=== PATIENT | male | born 1980 | race Caucasian/White ===

== ENCOUNTER 2020-05-20 14:49 | Outpatient (CLI) | payer BC, SELFPAY ==
[2020-05-21 14:30] LABS: SARS-CoV-2 RNA PCR Negative
== END 2020-05-20 14:50 | disposition home or self-care (01) ==
LOC: CHSLAB 14:51
PROVIDERS: PCP Internal Medicine; Visit Provider Internal Medicine
DX: Z20.828 Contact with and (suspected) exposure to other viral communicable diseases (principal)
CPT/HCPCS: 87635; C9803; U0003

== ENCOUNTER 2021-02-03 11:16 | Outpatient (CLI) | payer BC, SELFPAY ==
--- NOTE | ~2021-02-03 | CT_ITS ---
EXAMINATION: CT abdomen pelvis wo con DATE: 02/03/2021 11:49 INDICATION: Gross hematuria TECHNIQUE: Computed tomography (CT) of the abdomen and pelvis was performed without intravenous contr ast. The dose-length product (DLP) was 311.79 mGy-cm. Automated exposure control and iterative recons truction technique were employed. COMPARISON: 06/05/2016 FINDINGS: The lung bases are clear. The heart size is normal. The liver, spleen, pancreas, gallbladde r, and adrenal glands are normal. There is a 5 mm stone in the right renal pelvis. No stones are iden tified in the kidneys, the left ureter, or the bladder. There is no hydronephrosis or hydroureter. No pathologically enlarged abdominal or pelvic lymph nodes are identified. There is no free intraperito alona gas or evidence of bowel obstruction. There is a fat-containing umbilical hernia. There is mild lumbar spondylosis. IMPRESSION: 1. 5 mm stone in the right renal pelvis. Reviewed, dictated and finalized at location A.
[2021-02-03 11:32] LABS: Add Urine Microscopic? YES; Appearance Urine Cloudy (Clear); Basophils Absolute Auto 0.07 K/mm3 (0.00-0.10); Basophils Percent Auto 0.9 % (0.0-1.0); Bilirubin Urine 1+ (Negative); Blood Urine 3+ (Negative); Color Urine Red (Yellow); Eosinophils Absolute Auto 0.17 K/mm3 (0.02-0.50); Eosinophils Percent Auto 2.2 % (1.0-6.0); Glucose Urine UA Negative (Negative); Hematocrit 45.7 % (40.0-54.0); Hemoglobin 16.4 g/dL (14.0-18.0); Immature Granulocyte Absolute 0.01 K/mm3 (0.00-0.00); Immature Granulocyte Percent A 0.1 % (0.0-0.0); Ketones Urine Negative (Negative); Leukocyte Esterase Ur Negative (Negative); Lymphocytes Absolute Auto 1.94 K/mm3 (1.10-4.50); Lymphocytes Percent Auto 25.5 % (18.0-42.0); Mean Corpuscular HGB Conc 35.9 g/dL (32.0-36.0); Mean Corpuscular Hemoglobin 30.9 pg (27.0-31.0); Mean Corpuscular Volume 86.1 fL (78.0-102.0); Mean Platelet Volume 10.8 fl (8.7-11.0); Monocytes Absolute Auto 0.45 K/mm3 (0.10-0.90); Monocytes Percent Auto 5.9 % (2.0-11.0); Neutrophils Percent Auto 65.4 % (50.0-70.0); Nitrate Urine Negative (Negative); Platelet Count Result 323 K/mm3 (150-420); Protein Urine 1+ (Negative); Red Blood Count 5.31 M/mm3 (4.70-6.10); Red Cell Distribution Width 11.2 % (11.6-14.4); Specific Grav Ur 1.025 (1.010-1.020); Urobilinogen Urine 0.2 mg/dL (0.2-1.0); White Blood Count 7.6 K/mm3 (4.8-10.8); pH Urine 5.5 (5.0-8.0)
[2021-02-03 11:38] LABS: Bacteria Urine 1+ /hpf; RBC Urine >75 /hpf (0-2); WBC Urine None seen /hpf (0-3)
[2021-02-03 11:46] LABS: Partial Thromboplastin Time 24.8 SEC (23.90-30.70); Prothrombin Time 10.9 Seconds (9.50-12.10)
[2021-02-03 12:13] LABS: Alanine Aminotransferase 43 U/L (16-63); Albumin Level 4.1 g/dL (3.4-5.0); Alkaline Phosphatase 68 U/L (46-116); Anion Gap 13 mmol/L (8-16); Aspartate Amino Transferase 22 U/L (15-37); Bilirubin,Total 0.4 mg/dL (0.00-1.00); Blood Urea Nitrogen 10 mg/dL (7-18); Calcium 9.3 mg/dL (8.5-10.1); Carbon Dioxide 26 mmol/L (21-32); Chloride 102 mmol/L (98-108); Estimated Glomerular Filt Rate > 60; Glucose 89 mg/dL (70-99); Osmolality Calculated 290 mOsm/kg (285-295); Potassium 4.4 mmol/L (3.5-5.1); Sodium 141 mmol/L (136-145); Total Protein 7.4 g/dL (6.4-8.2)
== END 2021-02-03 11:17 | disposition home or self-care (01) ==
LOC: CHSLAB 11:18
PROVIDERS: PCP Internal Medicine; Visit Provider Internal Medicine
DX: R31.9 Hematuria, unspecified (principal)
CPT/HCPCS: 36415; 74176; 80053; 81001; 85025; 85610; 85730; 87086; 88112

== ENCOUNTER 2021-02-04 13:40 | Outpatient (CLI) | payer BC, SELFPAY ==
--- NOTE | ~2021-02-04 | XR_ITS ---
EXAMINATION: XR abdomen/kub 1V DATE: 02/04/2021 13:53 INDICATION: Calcium kidney stone. TECHNIQUE: A supine view of the abdomen on 2 radiographs was obtained. COMPARISON: CT abdomen and pelvis 02/03/2021 FINDINGS: There are no dilated loops of bowel. There is a 5 mm stone in right renal pelvis. IMPRESSION: 1. 5 mm stone in right renal pelvis. Reviewed, dictated and finalized at location A.
== END 2021-02-04 13:41 | disposition home or self-care (01) ==
PROVIDERS: PCP Internal Medicine; Visit Provider Urology
DX: N20.0 Calculus of kidney (principal)
CPT/HCPCS: 74018

== ENCOUNTER 2021-02-05 09:15 | Outpatient (CLI) | payer BC, SELFPAY ==
[2021-02-05 10:56] LABS: EDCOVIDSCREEN Negative (Negative)
== END 2021-02-05 09:16 | disposition home or self-care (01) ==
PROVIDERS: PCP Internal Medicine; Visit Provider Urology
DX: Z01.812 Encounter for preprocedural laboratory examination (principal); Z20.822 Contact with and (suspected) exposure to COVID-19
CPT/HCPCS: 36415; 87426; C9803

== ENCOUNTER 2021-02-06 02:20 | Day surgery (SDC) | payer BC, SELFPAY ==
[2021-02-04 14:13] VITALS: BMI 31.6
--- NOTE | ~2021-02-06 | XR_ITS ---
XR abdomen/kub 1V 02/06/2021 12:47 Indication: Preop ESWL. Renal stone Procedure: KUB Comparison: 02/04/2021 Findings: There is a 5 mm right renal stone. Nonobstructive bowel gas pattern. No acute osseous abnor mality. Impression: 1: Right nephrolithiasis. Reviewed, dictated and finalized at location B. Impression: 1: Right nephrolithiasis.
[2021-02-06 13:03] VITALS: BP 110/67; PULSE 87; RESP 16; TEMP 36.3; O2SAT 99
--- NOTE | 2021-02-06 13:10 | P.PNAN_ITS ---
Anes - Initial Pre Proc Eval Procedure: Operation Date: 02/06/21 14:45 Proposed Procedures p Right Renal Extracorporeal Shock Wave Lithotripsy, - Jac Cherry MD s Cystoscopy - Jac Cherry MD Date/Time: 02/06/21 13:10 Surgeon: Jac Cherry MD Pre Op Diagnosis: right kidney stone, gross hematuria Patient Data Age: 40 Gender: M Height: 1.73 m Weight: 94.54 kg Allergies Allergy/AdvReac Type Severity Reaction Status Date / Time iohexol Allergy Severe Hives, Verified 02/06/21 13:04 [From contrast - CT, X-RAY] DIFFICULTY BREATHING Home Medications Medication Instructions Recorded Confirmed Type famotidine [Pepcid] 20 mg PO DAILY PRN 02/04/21 02/06/21 History fluticasone propionate [Flonase 2 spray INTRANASAL DAILY PRN 02/04/21 02/06/21 History Allergy Relief] loratadine [Claritin] 10 mg PO DAILY PRN 02/04/21 02/06/21 History Patient hx anesthesia problems: none Family hx anesthesia problems: none [facility] Past Medical History Medical History (Updated 02/06/21 @ 13:17 by Sony Banuelos MD) Obesity Social History Social History Smoking status: Never smoker Alcohol intake: current Drinks per week: 2 Substance use: never Substance use type: does not use Living arrangements: with family Spiritual care concerns: No Anes - Eval Final PreProcedure Day of Procedure 02/06/21 13:10 Patient weight: obese Heart: regular rate and rhythm Lungs: clear to auscultation Airway: Mallampati scale class II Neurological: alert and oriented Last oral intake: >/= 8 hours ASA classification: II Emergent: no Anesthetic plan: proceed Anesthesia type and monitoring: general LMA and standard monitoring Informed Consent: The patient's anesthetic plan and its attendant risks and benefits were discussed with the patient/family/POA. Questions were solicited and answers provided to the satisfaction of the patient/family/POA.
[2021-02-06] MEDS: LACTATED RINGERS 1,000 ML 30 ML IV CONT (13:46)
--- NOTE | 2021-02-06 15:22 | SUR.PREOP ---
dr morrison talked with pt ,eswl machine not currently working, pt procedure cancelled and pt to call to reschedule procedure.
== END 2021-02-06 15:23 | disposition home or self-care (01) ==
PROVIDERS: PCP Internal Medicine; Visit Provider Urology
PROC: (CPT 50590; principal; 2021-02-06 14:45)
PROC: 0TJB8ZZ Inspection of Bladder, Via Natural or Artificial Opening Endoscopic (ICD-10-PCS; CPT 52000; 2021-02-06 14:45)
DX: N20.0 Calculus of kidney (principal); Z53.8 Procedure and treatment not carried out for other reasons
CPT/HCPCS: 74018; 99212; A9270; G0463; J7030; J7120

== ENCOUNTER 2021-02-09 14:51 | Emergency (ER) | payer BC, SELFPAY ==
--- NOTE | ~2021-02-09 | CT_ITS ---
EXAMINATION: CT abdomen pelvis wo con EXAM DATE: 02/09/2021 15:59 INDICATION: Right flank pain /abdominal pain /history of kidney stone. TECHNIQUE: Spiral CT of the abdomen and pelvis was performed without contrast. Axial, coronal and sag ittal images were reviewed. The dose-length product (DLP) for this examination was 708.12 mGy-cm. T he exposure was tailored according to patient size (auto mA exposure control), and iterative reconstr uction (ASIR) was used as additional dose reduction technique. Comparison is made to prior examinatio n from 02/03/2021. FINDINGS: There is a 6 mm stone in the right ureteropelvic junction, appear to be nonobstructing on p rior study but now there is mild right-sided hydronephrosis. Possible punctate right calyceal stones. The prostate is unremarkable. The bladder is unremarkable. The liver, spleen, adrenal glands and p ancreas are unremarkable. Gallbladder is unremarkable. No biliary obstruction. There is no retrope ritoneal or pelvic lymphadenopathy. The appendix is normal. The stomach and small bowel are unremarkable. There is expected amount of c olonic stool. No free intraperitoneal gas. The heart is normal in size. There are no pericardial or pleural effusions. Right middle lobe granuloma. The bones are unremarkable. IMPRESSION: 1. Right UPJ 6 mm stone, development of mild hydronephrosis. Reviewed, dictated and finalized at location A.
[2021-02-09 15:00] VITALS: BP 141/100; PULSE 83; RESP 18; TEMP 36.4; O2SAT 96
[2021-02-09] MEDS: ONDANSETRON INJ 4 MG/2 ML VIAL IV PUSH (15:15)
[2021-02-09] MEDS: SODIUM CHLORIDE 0.9% IV 1,000 ML 999 ML IV CONT (15:15)
[2021-02-09] MEDS: KETOROLAC 30 MG/ML VIAL (*BKC) IV PUSH (15:21)
[2021-02-09 15:27] LABS: Basophils Absolute Auto 0.07 K/mm3 (0.00-0.10); Basophils Percent Auto 1.1 % (0.0-1.0); Eosinophils Percent Auto 3.1 % (1.0-6.0); Hematocrit 42.5 % (40.0-54.0); Hemoglobin 15.4 g/dL (14.0-18.0); Immature Granulocyte Absolute 0.02 K/mm3 (0.00-0.00); Immature Granulocyte Percent A 0.3 % (0.0-0.0); Lymphocytes Absolute Auto 1.85 K/mm3 (1.10-4.50); Lymphocytes Percent Auto 29.1 % (18.0-42.0); Mean Corpuscular HGB Conc 36.2 g/dL (32.0-36.0); Mean Corpuscular Hemoglobin 31.6 pg (27.0-31.0); Mean Corpuscular Volume 87.1 fL (78.0-102.0); Mean Platelet Volume 10.9 fl (8.7-11.0); Monocytes Absolute Auto 0.48 K/mm3 (0.10-0.90); Monocytes Percent Auto 7.6 % (2.0-11.0); Neutrophils Absolute Auto 3.7 K/mm3 (1.7-7.2); Neutrophils Percent Auto 58.8 % (50.0-70.0); Platelet Count Result 280 K/mm3 (150-420); Red Blood Count 4.88 M/mm3 (4.70-6.10); Red Cell Distribution Width 11.3 % (11.6-14.4); White Blood Count 6.4 K/mm3 (4.8-10.8)
[2021-02-09 15:42] LABS: Alanine Aminotransferase 61 U/L (16-63); Albumin Level 3.5 g/dL (3.4-5.0); Alkaline Phosphatase 67 U/L (46-116); Anion Gap 11 mmol/L (8-16); Aspartate Amino Transferase 26 U/L (15-37); Bilirubin,Total 0.3 mg/dL (0.00-1.00); Blood Urea Nitrogen 7 mg/dL (7-18); Calcium 8.1 mg/dL (8.5-10.1); Carbon Dioxide 25 mmol/L (21-32); Chloride 105 mmol/L (98-108); Estimated CRCL calculation 90 ml/min; Estimated Glomerular Filt Rate > 60; Glucose 118 mg/dL (70-99); Lipase 132 U/L (73-393); Osmolality Calculated 291 mOsm/kg (285-295); Sodium 141 mmol/L (136-145); Total Protein 6.6 g/dL (6.4-8.2)
[2021-02-09 15:42] LABS: Appearance Urine Turbid (Clear); Bilirubin Urine 1+ (Negative); Blood Urine 3+ (Negative); Glucose Urine UA Negative (Negative); Ketones Urine Negative (Negative); Leukocyte Esterase Ur Negative (Negative); Nitrate Urine Negative (Negative); Protein Urine 1+ (Negative)
[2021-02-09 15:44] LABS: Lactic Acid Reflex 1.5 mmol/L (0.4-2.0)
[2021-02-09 15:46] LABS: Add Urine Microscopic? YES; Color Urine Red (Yellow); RBC Urine >75 /hpf (0-2); Squamous Epithelial Cell Urine Rare /hpf (Few); WBC Urine None seen /hpf (0-3)
[2021-02-09 15:47] LABS: Bacteria Urine Trace /hpf
[2021-02-09] MEDS: MORPHINE SULFATE (*CRX) 4 MG/ML INJ IV PUSH (15:52)
[2021-02-09] MEDS: SODIUM CHLORIDE 0.9% IV 500 ML 999 ML IV CONT (15:53)
--- NOTE | 2021-02-09 16:28 | ED.GENADULT ---
HPI - General Adult General Chief complaint: Abdominal Pain Stated complaint: Kidney Stone Source: patient and family History of Present Illness HPI narrative: this is a 40-year-old male that presents with some history of kidney stones having right flank and radiating into his right lower abdomen with some hematuria with some pain level about 8/10 was scheduled to see the urologist but otherwise malfunction in the air equipment and rescheduled for this Tuesday with urology at [place]. The patient is afebrile mild nausea with no vomiting pain level about an 8/10. Onset (ago): hour(s) Location: back and abdomen Radiation: back Severity: severe Severity scale (1-10): 8 Quality: aching Pain Consistency: intermittent Relieving factors: medication Exacerbating factors: none Related Data Home Medications Medication Instructions Recorded Confirmed famotidine [Pepcid] 20 mg PO DAILY PRN 02/04/21 02/09/21 fluticasone propionate [Flonase 2 spray INTRANASAL DAILY PRN 02/04/21 02/09/21 Allergy Relief] loratadine [Claritin] 10 mg PO DAILY PRN 02/04/21 02/09/21 Allergies Allergy/AdvReac Type Severity Reaction Status Date / Time iohexol Allergy Severe Hives, Verified 02/09/21 12:02 [From contrast - CT, X-RAY] DIFFICULTY BREATHING Review of Systems Review of Systems: All systems reviewed & are unremarkable except as noted in HPI and below PMFSH Past Medical History Medical History (Updated 02/09/21 @ 16:33 by Isai Montero MD) Nephrolithiasis Obesity Social History Social History Smoking status: Never smoker Alcohol intake: current Drinks per week: 2 Substance use: never Substance use type: does not use Spiritual care concerns: No Exam Const: General: no acute distress Orientation/consciousness: patient oriented x3 HENMT: Head: normal to inspection Eyes: Conjunctivae: conjunctivae normal Pupils: Equal, round and reactive pupils present Neck: Neck: normal visual inspection, no lymphadenopathy and no meningeal signs Chest: Chest palpation & inspection: normal inspection of the chest Resp: Effort & Inspection: normal respiratory effort Cardio: Rate: regular rate Rhythm: regular rhythm GI: GI Palp: Yes Soft to palpation and Yes Tenderness to palpation present (GI) ( Right flank) : General: Yes CVA tenderness Urinary Catheter: Urinary Catheter: patent and draining and urine red Back/Spine/Pelvis: Back: CVA tenderness Skin: General skin exam: normal color Rashes: no rashes Neuro: General: patient oriented x3, moves all extremities, no meningeal signs and no focal motor deficits Extrem: General: normal to inspection Psych: Appearance: grossly normal Mental Status: mental status grossly normal Course Course Emergency Course: patient received IV Toradol and IV morphine pain level initially was 8/10 after reassessment pain level currently about a 4/10, labs and CT scan reviewed with patient. Vital Signs Vital signs: Vital Signs Temperature 36.4 C 02/09/21 15:00 Pulse Rate 83 02/09/21 15:00 Respiratory Rate 18 02/09/21 15:00 Blood Pressure 141/100 H 02/09/21 15:00 Pulse Oximetry 96 02/09/21 15:00 Temperature 36.4 C 02/09/21 15:00 Pulse Rate 83 02/09/21 15:00 Respiratory Rate 18 02/09/21 15:00 Blood Pressure 141/100 H 02/09/21 15:00 Pulse Oximetry 96 02/09/21 15:00 Medical Decision Making Vital Signs Vital Signs: Vital Signs Temperature 36.4 C 02/09/21 15:00 Pulse Rate 83 02/09/21 15:00 Respiratory Rate 18 02/09/21 15:00 Blood Pressure 141/100 H 02/09/21 15:00 Pulse Oximetry 96 02/09/21 15:00 Temperature 36.4 C 02/09/21 15:00 Pulse Rate 83 02/09/21 15:00 Respiratory Rate 18 02/09/21 15:00 Blood Pressure 141/100 H 02/09/21 15:00 Pulse Oximetry 96 02/09/21 15:00 Lab Data Result diagrams: 02/09/21 15:23 02/09/21 1
[2021-02-09 16:41] VITALS: BP 140/104; PULSE 82; RESP 20; TEMP 36.4; O2SAT 97
== END 2021-02-09 16:55 | disposition home or self-care (01) ==
PROVIDERS: Emergency Provider Emergency Medicine; PCP Internal Medicine
DX: N20.0 Calculus of kidney (principal)
CPT/HCPCS: 36415; 74176; 80053; 81001; 83605; 83690; 85025; 96361; 96374; 96375; 99283; 99284; J1885; J2270; J2405; J7030; J7040

== ENCOUNTER 2021-02-10 09:05 | Outpatient (CLI) | payer BC, SELFPAY ==
[2021-02-10 11:24] LABS: SARS-CoV-2 RNA PCR Negative (Negative)
== END 2021-02-10 09:06 | disposition home or self-care (01) ==
LOC: CHSLAB 09:08
PROVIDERS: PCP Internal Medicine; Visit Provider Urology
DX: Z20.822 Contact with and (suspected) exposure to COVID-19 (principal)
CPT/HCPCS: C9803; U0003; U0005

== ENCOUNTER 2021-02-11 17:36 | Emergency (ER) | payer BC, SELFPAY ==
--- NOTE | ~2021-02-11 | CT_ITS ---
EXAMINATION: CT abdomen pelvis wo con EXAM DATE: 02/11/2021 18:23 INDICATION: Right flank pain. Known kidney stones. TECHNIQUE: Spiral CT of the abdomen and pelvis was performed without contrast. Axial, coronal and sag ittal images were reviewed. The dose-length product (DLP) for this examination was 546.17 mGy-cm. T he exposure was tailored according to patient size (auto mA exposure control), and iterative reconstr uction (ASIR) was used as additional dose reduction technique. Comparison is made to prior examinatio n from 06/11/2021. FINDINGS: There is a 6 mm stone in the right renal pelvic junction with mild hydronephrosis, perineph bennie fat stranding. No other genitourinary calcifications. Compared to previous examination perinephri c fat stranding has increased. The prostate is unremarkable. The bladder is unremarkable. The liver, spleen, adrenal glands and pa ncreas are unremarkable. Gallbladder is unremarkable. No biliary obstruction. There is no retroper itoneal or pelvic lymphadenopathy. The appendix is normal. The stomach and small bowel are unremarkable. There is expected amount of c olonic stool. No free intraperitoneal gas. The heart is normal in size. There are no pericardial or pleural effusions. Right middle lobe calcified granuloma. There are no osteoblastic or osteolyt ic lesions identified. IMPRESSION: Persistent right UPJ 6 mm stone and mild hydronephrosis. Interval increase in amount of p erinephric fat stranding. Reviewed, dictated and finalized at location A. IMPRESSION: Persistent right UPJ 6 mm stone and mild hydronephrosis. Interval i ncrease in amount of perinephric fat stranding.
[2021-02-11] MEDS: SODIUM CHLORIDE 0.9% IV 500 ML 999 ML IV CONT (18:11)
[2021-02-11] MEDS: ONDANSETRON INJ 4 MG/2 ML VIAL IV PUSH (18:11)
[2021-02-11] MEDS: KETOROLAC (*BKC) 60 MG/2 ML VIAL IM (18:11)
[2021-02-11 18:16] VITALS: BP 158/105; PULSE 77; RESP 20; TEMP 37.2; O2SAT 98
[2021-02-11] MEDS: MORPHINE SULFATE (*CRX) 2 MG/ML INJ IV PUSH (18:28)
--- NOTE | 2021-02-11 18:49 | ED.ABDPAIN ---
HPI - Abdominal Pain General Chief Complaint: Urogenital-Male Stated Complaint: kidney stone Time Seen by Provider: 02/11/21 18:18 Source: patient and RN notes reviewed Mode of arrival: ambulatory Limitations: no limitations History of Present Illness MD elicited complaint: abdominal pain and flank pain Pertinent past history: kidney stones Onset (ago): day(s) Pain Consistency: constant and colicky Location: R flank Severity: moderate Pain scale (0-10): 8 Quality: cramping and aching Radiation: R flank Migration to: R flank Exacerbating factors: nothing Relieving factors: medication Associated symptoms: nausea Treatments prior to arrival: prescription analgesics Related Data Home Medications Medication Instructions Recorded Confirmed famotidine [Pepcid] 20 mg PO DAILY PRN 02/04/21 02/11/21 fluticasone propionate [Flonase 2 spray INTRANASAL DAILY PRN 02/04/21 02/11/21 Allergy Relief] loratadine [Claritin] 10 mg PO DAILY PRN 02/04/21 02/11/21 Allergies Allergy/AdvReac Type Severity Reaction Status Date / Time iohexol Allergy Severe Hives, Verified 02/11/21 18:21 [From contrast - CT, X-RAY] DIFFICULTY BREATHING Review of Systems Review of Systems: All systems reviewed & are unremarkable except as noted in HPI and below Constitutional: Constitutional: Reports as per HPI and Reports no additional constitutional complaints Eyes: Eyes: Reports as per HPI and Reports no additional eye complaints ENT: Reports system reviewed and no additional complaints, except as documented and Reports as per HPI Cardiovascular: Cardiovascular: Reports as per HPI and Reports no additional cardiovascular complaints Respiratory: Respiratory: Reports as per HPI and Reports no additional respiratory complaints Gastrointestinal: Gastrointestinal: Reports as per HPI, Reports no additional gastrointestinal complaints, Reports abdominal pain (Right flank pain) and Reports nausea Genitourinary: Genitourinary: Reports no additional male genitourinary complaints and Reports as per HPI Musculoskeletal: Musculoskeletal: Reports no additional musculoskeletal complaints and Reports as per HPI Integumentary/Breasts: Skin/Breast: Reports system reviewed and no additional complaints, except as docu and Reports as per HPI Neurologic: Reports system reviewed and no additional complaints, except as documented and Reports as per HPI Psychiatric: Psychiatric: Reports no additional psychiatric complaints and Reports as per HPI Endocrine: Endocrine: Reports no additional endocrine complaints and Reports as per HPI Hematologic/Lymphatic: Hematologic/Lymphatic: Reports no additional hematologic/lymphatic complaints and Reports as per HPI Allergic/Immunologic: Allergic/Immunologic: Reports no additional allergic/immunologic complaints and Reports as per HPI [facility] Past Medical History Medical History Nephrolithiasis Obesity Social History Social History Smoking status: Never smoker Alcohol intake: current Drinks per week: 2 Substance use: never Substance use type: does not use Gender identity (if verbalized by the patient): Male Spiritual care concerns: No Exam Const: General: no acute distress and alert Nutritional Appearance: obese Orientation/consciousness: patient oriented x3 HENMT: Head: normal to inspection Ears: external ears normal and TM's normal bilaterally General nose exam: Normal external nose present Face and sinus: sinuses nontender Mouth: Yes moist mucous membranes Eyes: Conjunctivae: conjunctivae normal Pupils: Equal, round and reactive pupils present EOM: EOMs intact bilaterally Neck: Neck: normal visual inspection and no lymphadenopathy Chest: Chest palpation & inspection: normal inspection of the chest Resp: Effort & Inspection: normal respiratory effort Auscultation: clear to a
[2021-02-11 19:28] VITALS: BP 140/79; PULSE 90; RESP 20; TEMP 37.1; O2SAT 94
== END 2021-02-11 19:32 | disposition home or self-care (01) ==
PROVIDERS: Emergency Provider Emergency Medicine; PCP Internal Medicine
DX: N20.0 Calculus of kidney (principal)
CPT/HCPCS: 74176; 96361; 96372; 96374; 96375; 99283; 99284; J1885; J2270; J2405; J7040

== ENCOUNTER 2021-02-13 00:42 | Day surgery (SDC) | payer BC, SELFPAY ==
[2021-02-09 12:25] VITALS: BMI 31.6
[2021-02-13] VITALS (9 sets, daily range): BP systolic 109–134; BP diastolic 57–89; PULSE 74–90; RESP 12–18; TEMP 36.3–37.7; O2SAT 96–99
--- NOTE | ~2021-02-13 | XR_ITS ---
EXAMINATION: XR abdomen/kub 1V DATE: 02/13/2021 09:42 INDICATION: Right kidney stone. TECHNIQUE: A supine view of the abdomen on 2 radiographs was obtained. COMPARISON: Abdomen radiograph 02/06/2021, CT abdomen and pelvis 02/11/2021 FINDINGS: There are no dilated loops of bowel. There is a 5 mm stone in proximal right ureter. IMPRESSION: 1. 5 mm stone in proximal right ureter. Reviewed, dictated and finalized at location A.
--- NOTE | 2021-02-13 07:00 | WPDHPUPDATE1 ---
History and Physical Update Update Date/Time: 02/13/21 07:00 History and Physical has been reviewed, including an updated exam of the patient. There are NO changes in the patient's condition. Risks, benefits, and alternatives have been discussed and questions answered. Patient agrees to proceed with procedure.
--- NOTE | 2021-02-13 09:59 | P.PNAN_ITS ---
Anes - Eval Final PreProcedure Day of Procedure 02/13/21 09:59 Patient weight: obese Heart: regular rate and rhythm Lungs: clear to auscultation Airway: Mallampati scale class II Neurological: alert and oriented Last oral intake: >/= 8 hours ASA classification: II Emergent: no Anesthetic plan: proceed Anesthesia type and monitoring: general LMA and standard monitoring Informed Consent: The patient's anesthetic plan and its attendant risks and nancy efits were discussed with the patient/family/POA. Questions were solicited and answers provided to the satisfaction of the patient/family/POA.
[2021-02-13] MEDS: LACTATED RINGERS 1,000 ML 30 ML IV CONT (10:10)
[2021-02-13] MEDS: ceFAZolin 2 GM/D5W 50 ML 2 GM/50 ML BAG IVPB (11:09)
--- NOTE | 2021-02-13 11:26 | P.OP_ITS ---
Procedure Note - Detailed Date of Procedure 02/13/21 Pre-op Diagnosis Right kidney stones, gross hematuria Post-op Diagnosis same Procedure Performed Right ESWL, flexible cystoscopy Surgeon Pipe Early MD [employer] None Anesthesia general Indications Painful right renal stone Findings Cystoscopy: normal Description of Procedure The patient was brought to the operative suite where he was placed in the supine position on the Dornier lithotripter table. Flexible cystoscopy was undertaken with a 16F flexible cystoscopy. There were no urethral strictures. The prostatic urethra estimated length was 1.5cm. There was no obstruction of the prostatic urethra with nomedian lobe enlargement. The patient was then repositioned in the supine position with the focal point of the lithotriptor on a 5mm right renal calculus. A total of 2500 shocks were delivered at a power setting of 4. There appeared to be good fragmentation of the stone. The patient tolerated the procedure well and was taken to the recovery room in good condition. Implants None Estimated Blood Loss 0 Drains No Packing No Pathology none sent Complications No immediate complications Condition stable Disposition PACU
[2021-02-13] MEDS: fentaNYL CITRATE INJ (*CRX) 100 MCG/2 ML VIAL 25 MCG IV PUSH ×4 (12:45→13:00)
== END 2021-02-13 14:24 | disposition home or self-care (01) ==
PROVIDERS: PCP Internal Medicine; Visit Provider Urology
PROC: (CPT 50590; principal; 2021-02-13 11:30)
PROC: 0TJB8ZZ Inspection of Bladder, Via Natural or Artificial Opening Endoscopic (ICD-10-PCS; CPT 52000; 2021-02-13 11:30)
DX: N20.0 Calculus of kidney (principal); E66.9 Obesity, unspecified; Z68.31 Body mass index [BMI] 31.0-31.9, adult
CPT/HCPCS: 50590; 74018; A9270; J0690; J1100; J2250; J2405; J2704; J3010; J7030; J7120

== ENCOUNTER 2021-02-13 19:54 | Emergency (ER) | payer BC, SELFPAY ==
[2021-02-13 20:10] VITALS: BP 140/88; PULSE 73; RESP 18; TEMP 37.2
[2021-02-13] MEDS: KETOROLAC (*BKC) 60 MG/2 ML VIAL IM (20:29)
[2021-02-13] MEDS: HYDROmorphone HCL INJ (*CRX) 2 MG/ML VIAL 1 MG IM (20:30)
[2021-02-13] MEDS: ONDANSETRON HCL ODT 4 MG TABLET PO (20:30)
--- NOTE | 2021-02-13 21:05 | ED.ABDPAIN ---
HPI - Abdominal Pain General Chief Complaint: Unspecified Stated Complaint: pain after surgery Time Seen by Provider: 02/13/21 20:20 Source: patient Mode of arrival: ambulatory Limitations: no limitations History of Present Illness HPI narrative: Patient comes in with abdominal pain on right side, and right flank pain, from having lithotripsy earlier today. He went home and toow one hydrocodone 5mg, and then has had uncontrolled pain. He evidently did not think to take anything else. Pain has been moderately severe, and sharp crampy in right flank. He has not had significant nausea. MD elicited complaint: abdominal pain and flank pain Pertinent past history: kidney stones Onset (ago): hour(s) Pain Consistency: constant Location: RUQ, RLQ and R flank Severity: moderate Quality: cramping and stabbing Exacerbating factors: movement Relieving factors: movement Associated symptoms: denies other symptoms Treatments prior to arrival: prescription analgesics Related Data Home Medications Medication Instructions Recorded Confirmed famotidine [Pepcid] 20 mg PO DAILY PRN 02/04/21 02/13/21 fluticasone propionate [Flonase 2 spray INTRANASAL DAILY PRN 02/04/21 02/13/21 Allergy Relief] loratadine [Claritin] 10 mg PO DAILY PRN 02/04/21 02/13/21 Allergies Allergy/AdvReac Type Severity Reaction Status Date / Time iohexol Allergy Severe Hives, Verified 02/13/21 10:26 [From contrast - CT, X-RAY] DIFFICULTY BREATHING Review of Systems Constitutional: Constitutional: Reports no additional constitutional complaints Eyes: Eyes: Reports no additional eye complaints ENT: Reports system reviewed and no additional complaints, except as documented Cardiovascular: Cardiovascular: Reports no additional cardiovascular complaints Respiratory: Respiratory: Reports no additional respiratory complaints Gastrointestinal: Gastrointestinal: Reports no additional gastrointestinal complaints Genitourinary: Genitourinary: Reports no additional male genitourinary complaints Musculoskeletal: Musculoskeletal: Reports no additional musculoskeletal complaints Integumentary/Breasts: Skin/Breast: Reports system reviewed and no additional complaints, except as docu Neurologic: Reports system reviewed and no additional complaints, except as documented Psychiatric: Psychiatric: Reports no additional psychiatric complaints Endocrine: Endocrine: Reports no additional endocrine complaints Hematologic/Lymphatic: Hematologic/Lymphatic: Reports no additional hematologic/lymphatic complaints Allergic/Immunologic: Allergic/Immunologic: Reports no additional allergic/immunologic complaints [facility] Past Medical History Medical History Nephrolithiasis Obesity Social History Social History Smoking status: Never smoker Alcohol intake: current Drinks per week: 2 Substance use: never Substance use type: does not use Gender identity (if verbalized by the patient): Male Spiritual care concerns: No Exam Const: General: no acute distress Orientation/consciousness: patient oriented x3 HENMT: Head: normal to inspection Ears: external ears normal General nose exam: Normal external nose present Throat: posterior oropharynx normal Eyes: Conjunctivae: conjunctivae normal Neck: Neck: normal visual inspection and no lymphadenopathy Chest: Chest palpation & inspection: normal inspection of the chest Resp: Effort & Inspection: normal respiratory effort Auscultation: clear to auscultation bilaterally Cardio: Rate: regular rate Rhythm: regular rhythm GI: GI Palp: Yes Soft to palpation (nontender) Back/Spine/Pelvis: Back: no CVA tenderness Skin: General skin exam: normal color Neuro: General: patient oriented x3, moves all extremities and no meningeal signs Extrem: General: normal to inspection Psych: Appearance:
[2021-02-13 21:15] VITALS: BP 142/80; PULSE 72; RESP 18; TEMP 36.6
== END 2021-02-13 21:17 | disposition home or self-care (01) ==
PROVIDERS: Emergency Provider Emergency Medicine; PCP Internal Medicine
DX: N20.0 Calculus of kidney (principal)
CPT/HCPCS: 96372; 99283; 99284; A9270; J1170; J1885

== ENCOUNTER 2021-02-16 15:25 | Observation (INO) | payer BC, SELFPAY ==
--- NOTE | ~2021-02-16 | CT_ITS ---
EXAMINATION: CT abdomen pelvis wo con EXAM DATE: 02/16/2021 16:19 INDICATION: History of kidney stone, right flank pain, had lithotripsy on Tuesday. Persistent pain. TECHNIQUE: Spiral CT of the abdomen and pelvis was performed without contrast. Axial, coronal and sag ittal images were reviewed. The dose-length product (DLP) for this examination was 477.59 mGy-cm. T he exposure was tailored according to patient size (auto mA exposure control), and iterative reconstr uction (ASIR) was used as additional dose reduction technique. Comparison is made to prior examinatio n from 02/11/2021. FINDINGS: There is stone in the right renal pelvis measuring 3 mm, smaller than the previously seen s tone. Another 4 mm stone fragment in the mid aspect of the right ureter which is probably causing the mild right-sided hydronephrosis. There is persistent mild right ureteral and perinephric fat strandi ng. No other kidney stones. The prostate is unremarkable. The bladder is unremarkable. The liver, spleen, adrenal glands and pancreas are unremarkable. Gallbladder is unremarkable. No biliary obstr uction. There is no retroperitoneal or pelvic lymphadenopathy. The appendix is normal. The stomach and small bowel are unremarkable. There is expected amount of c olonic stool. No free intraperitoneal gas. The heart is normal in size. There are no pericardial or pleural effusions. The lung bases are unremarkable. There are no osteoblastic or osteolytic les ions identified. IMPRESSION: Right mid ureteral 4 mm stone fragment and 3 mm stone fragment in the renal pelvis. The m ore distal stone is likely causing mild obstructive nephropathy. Reviewed, dictated and finalized at location A. IMPRESSION: Right mid ureteral 4 mm stone fragment and 3 mm stone fragment in t he renal pelvis. The more distal stone is likely causing mild obstructive nephr opathy.
[2021-02-16 15:30] VITALS: BP 149/105; PULSE 73; RESP 18; TEMP 37.1; O2SAT 97
[2021-02-16] MEDS: SODIUM CHLORIDE 0.9% IV 1,000 ML 999 ML IV CONT (15:57)
[2021-02-16] MEDS: KETOROLAC 30 MG/ML VIAL (*BKC) IV PUSH (15:58)
[2021-02-16 16:09] LABS: Basophils Absolute Auto 0.04 K/mm3 (0.00-0.10); Basophils Percent Auto 0.4 % (0.0-1.0); Hematocrit 44.1 % (40.0-54.0); Hemoglobin 15.8 g/dL (14.0-18.0); Immature Granulocyte Absolute 0.02 K/mm3 (0.00-0.00); Immature Granulocyte Percent A 0.2 % (0.0-0.0); Lymphocytes Absolute Auto 1.22 K/mm3 (1.10-4.50); Lymphocytes Percent Auto 12.2 % (18.0-42.0); Mean Corpuscular HGB Conc 35.8 g/dL (32.0-36.0); Mean Corpuscular Hemoglobin 31.2 pg (27.0-31.0); Mean Corpuscular Volume 87.2 fL (78.0-102.0); Mean Platelet Volume 10.5 fl (8.7-11.0); Neutrophils Absolute Auto 7.8 K/mm3 (1.7-7.2); Neutrophils Percent Auto 78.2 % (50.0-70.0); Platelet Count Result 319 K/mm3 (150-420); Red Blood Count 5.06 M/mm3 (4.70-6.10)
[2021-02-16 16:41] LABS: Anion Gap 13 mmol/L (8-16); Bilirubin,Total 0.5 mg/dL (0.00-1.00); Calcium 9.2 mg/dL (8.5-10.1); Carbon Dioxide 24 mmol/L (21-32); Chloride 102 mmol/L (98-108); Estimated CRCL calculation 53 ml/min; Estimated Glomerular Filt Rate 41; Glucose 99 mg/dL (70-99); Potassium 4.4 mmol/L (3.5-5.1); Sodium 139 mmol/L (136-145)
[2021-02-16 16:42] LABS: Alanine Aminotransferase 41 U/L (16-63); Aspartate Amino Transferase 23 U/L (15-37); Total Protein 8.1 g/dL (6.4-8.2)
[2021-02-16 16:43] LABS: Albumin Level 3.5 g/dL (3.4-5.0); Alkaline Phosphatase 97 U/L (46-116)
--- NOTE | 2021-02-16 17:03 | ED.MALEGU ---
HPI - Male Genitourinary General Chief complaint: Urogenital-Male Stated complaint: pain after surgery Source: patient and family Mode of arrival: ambulatory Limitations: no limitations History of Present Illness HPI Narrative: This is 40-year-old gentleman that presents with right flank pain has a history of kidney stones that was diagnosed about 4 5 days ago was seen by urology and had lithotripsy performed but the patient states that the pain medicine is not helping and that he is having intense pain in the right flank and radiating into his right groin area chills and diaphoretic with no chest pain no shortness of breath no fevers currently no nausea or vomiting. Onset (ago): day(s) Duration: constant Location: right flank Severity: severe Severity scale (1-10): 10 Quality: aching and dull Relieving factors: none Exacerbating factors: none Related Data Home Medications Medication Instructions Recorded Confirmed famotidine [Pepcid] 20 mg PO DAILY PRN 02/04/21 02/16/21 fluticasone propionate [Flonase 2 spray INTRANASAL DAILY PRN 02/04/21 02/16/21 Allergy Relief] loratadine [Claritin] 10 mg PO DAILY PRN 02/04/21 02/16/21 Allergies Allergy/AdvReac Type Severity Reaction Status Date / Time iohexol Allergy Severe Hives, Verified 02/13/21 10:26 [From contrast - CT, X-RAY] DIFFICULTY BREATHING Review of Systems Review of Systems: All systems reviewed & are unremarkable except as noted in HPI and below PMFSH Past Medical History Medical History Nephrolithiasis Obesity Social History Social History Smoking status: Never smoker Alcohol intake: current Drinks per week: 2 Substance use: never Substance use type: does not use Gender identity (if verbalized by the patient): Male Spiritual care concerns: No Exam Const: General: no acute distress and alert HENMT: Head: normal to inspection Eyes: Conjunctivae: conjunctivae normal Pupils: Equal, round and reactive pupils present Neck: Neck: normal visual inspection, no lymphadenopathy and no meningeal signs Chest: Chest palpation & inspection: normal inspection of the chest Resp: Effort & Inspection: normal respiratory effort Cardio: Rate: regular rate Rhythm: regular rhythm GI: GI Palp: Yes Soft to palpation : General: Yes CVA tenderness Urinary Catheter: Urinary Catheter: urine clear Back/Spine/Pelvis: Back: CVA tenderness ( Right flank) Skin: General skin exam: normal color Rashes: no rashes Neuro: General: patient oriented x3 and moves all extremities Course Course Emergency Course: patient's pain level has improved but he has concerns of going and having intense pain and not able to get into urologist. The patient's CT scan blood work reviewed with patient and will admit under observation for pain control. Vital Signs Vital signs: Vital Signs Temperature 37.1 C 02/16/21 15:30 Pulse Rate 73 02/16/21 15:30 Respiratory Rate 18 02/16/21 15:30 Blood Pressure 149/105 H 02/16/21 15:30 Pulse Oximetry 97 02/16/21 15:30 Temperature 37.1 C 02/16/21 15:30 Pulse Rate 73 02/16/21 15:30 Respiratory Rate 18 02/16/21 15:30 Blood Pressure 149/105 H 02/16/21 15:30 Pulse Oximetry 97 02/16/21 15:30 MDM - Male Genitourinary Lab Data Result diagrams: 02/16/21 15:58 02/16/21 15:58 Labs: Lab Results 02/16/21 02/16/21 Range/Units 15:58 15:58 WBC 10.0 (4.8-10.8) K/mm3 RBC 5.06 (4.70-6.10) M/mm3 Hgb 15.8 (14.0-18.0) g/dL Hct 44.1 (40.0-54.0) % MCV 87.2 (78.0-102.0) fL MCH 31.2 H (27.0-31.0) pg MCHC 35.8 (32.0-36.0) g/dL RDW 11.0 L (11.6-14.4) % Plt Count 319 (150-420) K/mm3 MPV 10.5 (8.7-11.0) fl Immature Gran % (Auto) 0.2 H (0.0-0.0) % Neut % (Auto) 78.2 H (50.0-70.0) % Lymph % (Auto) 12.2 L
[2021-02-16 17:14] LABS: Blood Urea Nitrogen 17 mg/dL (7-18); Osmolality Calculated 289 mOsm/kg (285-295)
[2021-02-16 17:15] VITALS: BP 120/70; PULSE 88; RESP 18; TEMP 36.6; O2SAT 95
[2021-02-16 17:48] VITALS: BP 120/88; PULSE 88; RESP 20; TEMP 36.6; O2SAT 97
[2021-02-16] MEDS: TAMSULOSIN HCL 0.4 MG CAPSULE PO (17:59)
--- NOTE | 2021-02-16 18:00 | ADMGEN ---
This patient, Jv Crespo, was admitted to 2nd Floor Room 204-2 for 23 hr observation. . Patient/family oriented to hospital policies and general routines including ID bracelet, bed and alarms, visiting hours, pain management, procedures, bathroom and other care routines, personal items, smoking policy, room service/diet, and visiting hours. Information on how to activate the Rapid Response Team has been discussed. Patient/Family are encouraged to report perceived risks to care and to ask questions if they do not understand what they are told or what they should do. Pt. is encouraged to call if needed and understands how to use urinal and strain all urine. Pt. has call villegas in reach and has no c/o at this time.
[2021-02-16 18:05] VITALS: BMI 30.2
[2021-02-16] MEDS: SODIUM CHLORIDE 0.9% IV 1,000 ML 100 ML IV CONT (18:20)
[2021-02-16 20:17] VITALS: BP 122/77; PULSE 78; RESP 20; TEMP 36.8; O2SAT 96
[2021-02-16] MEDS: MORPHINE SULFATE (*CRX) 2 MG/ML INJ IV PUSH (21:45)
[2021-02-16 23:56] VITALS: BP 142/92; PULSE 84; RESP 18; TEMP 37.2; O2SAT 99
--- NOTE | 2021-02-16 23:57 | PC.NURSE ---
Patient reported pain level at 3 while lying in bed. After sitting up and using toilet reported increase in pain level,
--- NOTE | 2021-02-17 00:57 | PC.NURSE ---
UA collected and taken to lab. Patient continues to experience discomfort
[2021-02-17 00:58] LABS: Add Urine Microscopic? YES; Appearance Urine Clear (Clear); Bilirubin Urine Negative (Negative); Blood Urine 3+ (Negative); Color Urine Yellow (Yellow); Glucose Urine UA Negative (Negative); Ketones Urine Negative (Negative); Leukocyte Esterase Ur Negative (Negative); Nitrate Urine Negative (Negative); Protein Urine Negative (Negative); Specific Grav Ur 1.015 (1.010-1.020); Urobilinogen Urine >=8.0 mg/dL (0.2-1.0)
[2021-02-17 01:11] LABS: Bacteria Urine Trace /hpf; RBC Urine 21-50 /hpf (0-2); WBC Urine 0-3 /hpf (0-3)
--- NOTE | 2021-02-17 02:19 | PC.NURSE ---
Patient continues to experience pain. Up ad dwaine in room. fluids encouraged and taken well.
--- NOTE | 2021-02-17 03:18 | PC.NURSE ---
patient continues to have discomfort.
[2021-02-17 04:00] VITALS: BP 130/98; PULSE 90; RESP 18; TEMP 36.7; O2SAT 98
--- NOTE | 2021-02-17 04:17 | PC.NURSE ---
Patient slept for about an hour. Continues to experience pain. Up ad dwaine in room. Urine strained-some grit present. Urine orange with some blood present
[2021-02-17] MEDS: SODIUM CHLORIDE 0.9% IV 1,000 ML 100 ML IV CONT (04:23)
[2021-02-17] MEDS: MORPHINE SULFATE (*CRX) 2 MG/ML INJ IV PUSH (04:35)
[2021-02-17 05:15] LABS: Basophils Absolute Auto 0.04 K/mm3 (0.00-0.10); Basophils Percent Auto 0.5 % (0.0-1.0); Eosinophils Absolute Auto 0.12 K/mm3 (0.02-0.50); Eosinophils Percent Auto 1.5 % (1.0-6.0); Hematocrit 41.5 % (40.0-54.0); Hemoglobin 14.9 g/dL (14.0-18.0); Immature Granulocyte Absolute 0.01 K/mm3 (0.00-0.00); Immature Granulocyte Percent A 0.1 % (0.0-0.0); Lymphocytes Absolute Auto 1.36 K/mm3 (1.10-4.50); Lymphocytes Percent Auto 17.2 % (18.0-42.0); Mean Corpuscular HGB Conc 35.9 g/dL (32.0-36.0); Mean Corpuscular Hemoglobin 31.5 pg (27.0-31.0); Mean Corpuscular Volume 87.7 fL (78.0-102.0); Mean Platelet Volume 10.7 fl (8.7-11.0); Monocytes Absolute Auto 0.69 K/mm3 (0.10-0.90); Monocytes Percent Auto 8.7 % (2.0-11.0); Neutrophils Absolute Auto 5.7 K/mm3 (1.7-7.2); Platelet Count Result 280 K/mm3 (150-420); Red Blood Count 4.73 M/mm3 (4.70-6.10); Red Cell Distribution Width 10.9 % (11.6-14.4); White Blood Count 7.9 K/mm3 (4.8-10.8)
--- NOTE | 2021-02-17 05:16 | PC.NURSE ---
Patient reports some relief with pain medication. Continues to have a dull ache in right side after medication but pain is not as sharp.
[2021-02-17 05:30] LABS: Alanine Aminotransferase 33 U/L (16-63); Alkaline Phosphatase 89 U/L (46-116); Anion Gap 10 mmol/L (8-16); Aspartate Amino Transferase 18 U/L (15-37); Bilirubin,Total 0.6 mg/dL (0.00-1.00); Blood Urea Nitrogen 18 mg/dL (7-18); Calcium 8.8 mg/dL (8.5-10.1); Carbon Dioxide 24 mmol/L (21-32); Chloride 104 mmol/L (98-108); Estimated CRCL calculation 55 ml/min; Estimated Glomerular Filt Rate 43; Glucose 101 mg/dL (70-99); Osmolality Calculated 287 mOsm/kg (285-295); Potassium 4.6 mmol/L (3.5-5.1); Sodium 138 mmol/L (136-145); Total Protein 7.2 g/dL (6.4-8.2)
[2021-02-17] MEDS: ONDANSETRON INJ 4 MG/2 ML VIAL IV PUSH (07:39)
[2021-02-17] MEDS: KETOROLAC 30 MG/ML VIAL (*BKC) IV PUSH (07:45)
[2021-02-17 07:58] VITALS: BP 118/85; PULSE 92; RESP 18; TEMP 36.6; O2SAT 95
[2021-02-17] MEDS: amLODIPine BESYLATE 5 MG TABLET PO (09:46)
[2021-02-17] MEDS: TAMSULOSIN HCL 0.4 MG CAPSULE PO (09:46)
--- NOTE | 2021-02-17 10:57 | PC.NURSE ---
urine strained, no stone noted
--- NOTE | 2021-02-17 12:00 | PM.SD2 ---
Same Day Admit/Disch: HPI History of Present Illness Chief complaint: kidney stone <RAJIV Gunn - Last Filed: 02/17/21 12:46> Narrative: Jv Crespo is a 40 year old male who was admitted to Observation for right flank pain following lithotripsy. Pt states he was ordered Percocet which made him nauseated with some vomiting. Zofran did help a little. Percocet only helped his pain for about an hour. He was given Toradol in the ER which worked much better for him. He did have some very small particles strained out from his urine. Pt denies fevers and chills. <RAJIV Gunn - Last Filed: 02/17/21 12:46> [facility] Past Medical History Medical History: Medical History (Updated 02/17/21 @ 12:33 by RAJIV Gunn) Nephrolithiasis Obesity <RAJIV Gunn - Last Filed: 02/17/21 12:46> Surgical History Surgical History: Surgical History (Updated 02/17/21 @ 12:25 by RAJIV Gunn) H/O lithotripsy <RAJIV Gunn - Last Filed: 02/17/21 12:46> Social History Social History: Social History Smoking status: Never smoker Alcohol intake: never Drinks per week: 2 Alcohol use details: ONE DRINK PER MONTH Substance use: never Substance use type: does not use Gender identity (if verbalized by the patient): Male Spiritual care concerns: No <RAJIV Gunn - Last Filed: 02/17/21 12:46> Same Day Admit/Disch: Med Pre-admit Medications Home Medications: Home Medications Medication Instructions Recorded Confirmed Type famotidine [Pepcid] 20 mg PO DAILY PRN 02/04/21 02/16/21 History fluticasone propionate [Flonase 2 spray INTRANASAL DAILY PRN 02/04/21 02/16/21 History Allergy Relief] loratadine [Claritin] 10 mg PO DAILY PRN 02/04/21 02/16/21 History ondansetron HCl [Zofran] 4 mg PO Q6H PRN #10 tablet 02/09/21 02/16/21 Rx oxycodone-acetaminophen [Percocet] 1 tablet PO Q4H PRN #20 tablet 02/09/21 02/16/21 Rx hydrocodone-acetaminophen 1 - 2 tablet PO Q6H PRN #20 tablet 02/13/21 02/16/21 Rx sulfamethoxazole-trimethoprim 1 tablet PO Q12H #6 tablet 02/13/21 02/16/21 Rx hydrocodone-acetaminophen 1 tablet PO Q6H PRN #20 tablet 02/17/21 Rx ketorolac 10 mg PO Q6H 5 Days #20 tablet 02/17/21 Rx ondansetron HCl [Zofran] 4 mg PO Q6H PRN #20 tablet 02/17/21 Rx tamsulosin 0.4 mg PO QAM #14 cap 02/17/21 Rx <RAJIV Gunn - Last Filed: 02/17/21 12:46> Exam Const: General: cooperative, comfortable, no acute distress, alert, awake and Physically active <JUAN GunnC - Last Filed: 02/17/21 12:46> Nutritional Appearance: overweight <RAJIV Gunn - Last Filed: 02/17/21 12:46> Resp: Effort & Inspection: normal respiratory effort <JUAN GunnC - Last Filed: 02/17/21 12:46> Auscultation: clear to auscultation bilaterally <RAJIV Gunn - Last Filed: 02/17/21 12:46> Cardio: Rate: regular rate <JUAN GunnC - Last Filed: 02/17/21 12:46> Heart sounds: S1 normal heart sound present and S2 normal heart sound present <RAJIV Gunn - Last Filed: 02/17/21 12:46> GI: GI Palp: Yes Soft to palpation and No Tenderness to palpation present (GI) <RAJIV Gunn - Last Filed: 02/17/21 12:46> Auscultation: normal bowel sounds <RAJIV Gunn - Last Filed: 02/17/21 12:46> Skin: General skin exam: normal color and dry skin <RAJIV Gunn - Last Filed: 02/17/21 12:46> Lesions: no lesions <RAJIV Gunn - Last Filed: 02/17/21 12:46> Rashes: no rashes <RAJIV Gunn - Last Filed: 02/17/21 12:46> Neuro: General: oriented to person, oriented to place and oriented to time <RAJIV Gunn - Last Filed: 02/17/21 12:46> Cranial nerves: Yes CN's II-XII intact bilaterally (grossly intact) <RAJIV Gunn - Last Filed: 02/17/21 12:46> Cognition (Neuro): normal cognition <Ri
--- NOTE | 2021-02-17 13:35 | PC.NURSE ---
All discharge instructions and education reviewed with patient. Patient stated understanding. Denies any questions at this time. All belongings gathered together and sent home with patient. Patient left ambulatory, this nurse accompanied patient to front door. IV site removed, tip intact. Dressing applied to site.
--- NOTE | 2021-02-23 11:39 | PC.NURSE ---
Unable to contact.
== END 2021-02-17 13:35 | disposition home or self-care (01) ==
LOC: CHSED 15:26 → CHS2ND 17:14
PROVIDERS: Admitting Provider Emergency Medicine; Emergency Provider Emergency Medicine; PCP Internal Medicine; Visit Provider Emergency Medicine
DX: N20.2 Calculus of kidney with calculus of ureter (principal); Z87.442 Personal history of urinary calculi
CPT/HCPCS: 36415; 74176; 80053; 81001; 85025; 96361; 96365; 96375; 96376; 99285; A9270; G0378; J0696; J1885; J2270; J2405; J7030

== ENCOUNTER 2021-02-18 14:00 | Outpatient (CLI) | payer BC, SELFPAY ==
[2021-02-18 15:20] LABS: SARS-CoV-2 RNA PCR Negative (Negative)
== END 2021-02-18 14:01 | disposition home or self-care (01) ==
LOC: CHSLAB 14:02
PROVIDERS: PCP Internal Medicine; Visit Provider Urology
DX: Z01.818 Encounter for other preprocedural examination (principal); Z20.822 Contact with and (suspected) exposure to COVID-19
CPT/HCPCS: C9803; U0003; U0005

== ENCOUNTER 2021-02-19 02:03 | Day surgery (SDC) | payer BC, SELFPAY ==
[2021-02-18 14:09] VITALS: BMI 30.4
[2021-02-19] VITALS (8 sets, daily range): BP systolic 121–149; BP diastolic 75–93; PULSE 66–86; RESP 12–16; TEMP 36.3–36.4; O2SAT 99–100; BMI 29.6
--- NOTE | ~2021-02-19 | XR_ITS ---
EXAMINATION: XR stent kub - surgery EXAM DATE: 02/19/2021 13:24 INDICATION: Right-sided obstructive nephropathy. TECHNIQUE: Fluoroscopy used during XR stent kub - surgery performed by Dr. Jac Cherry MD , urologist. The radiologist Neymar Thrasher M.D. dictating this report of the image(s) available was no t present for the procedure. Total fluoroscopic time of 17 seconds. The DAP for this procedure was 206 radcm2. A total of 5 images sent to PACS from the exam. Correlation is made to CT abdomen pelvis 02/16/2021. FINDINGS: Difficult to identify the stones on the geological scout images. Final 2 images demonstrates a right double-J ureteral stent in expected position. Correlate with procedure note. IMPRESSION: Right ureteral stent in position. Reviewed, dictated and finalized at location B.
--- NOTE | 2021-02-19 10:38 | WPDANESEPPF ---
Anes - Initial Pre Proc Eval Procedure: Operation Date: 02/19/21 12:30 Proposed Procedures p Cystoscopy, Right Ureteroscopy with Stone Extraction, Possible Stent Placement, Possible Right Retrograde Pyelogram, - Jac Cherry MD s Possible Holmium Laser Procedure - Jac Cherry MD Date/Time: 02/19/21 10:38 Surgeon: Jac Cherry MD Pre Op Diagnosis: Right ureteral stone Patient Data Age: 40 Gender: M Height: 1.73 m Weight: 91 kg Allergies Allergy/AdvReac Type Severity Reaction Status Date / Time iohexol Allergy Severe Hives, Verified 02/19/21 10:34 [From contrast - CT, X-RAY] DIFFICULTY BREATHING Home Medications Medication Instructions Recorded Confirmed Type famotidine [Pepcid] 20 mg PO DAILY PRN 02/04/21 02/18/21 History fluticasone propionate [Flonase 2 spray INTRANASAL DAILY PRN 02/04/21 02/18/21 History Allergy Relief] loratadine [Claritin] 10 mg PO DAILY PRN 02/04/21 02/18/21 History oxycodone-acetaminophen [Percocet] 1 tablet PO Q4H PRN #20 tablet 02/09/21 02/18/21 Rx hydrocodone-acetaminophen 1 - 2 tablet PO Q6H PRN #20 tablet 02/13/21 02/18/21 Rx ketorolac 10 mg PO Q6H 5 Days #20 tablet 02/17/21 02/19/21 Rx ondansetron HCl [Zofran] 4 mg PO Q6H PRN #20 tablet 02/17/21 02/18/21 Rx tamsulosin 0.4 mg PO QAM #14 cap 02/17/21 02/18/21 Rx Patient hx anesthesia problems: none Family hx anesthesia problems: none PMFSH Past Medical History Medical History Nephrolithiasis Obesity Surgical History Surgical History H/O lithotripsy Social History Social History Smoking status: Never smoker Alcohol intake: current Drinks per week: 2 Alcohol use details: ONE DRINK PER MONTH Substance use: never Substance use type: does not use Living arrangements: with family Additional living arrangements comments: Gender identity (if verbalized by the patient): Male Spiritual care concerns: No Anes - Eval Final PreProcedure Day of Procedure 02/19/21 10:38 Patient weight: obese Heart: regular rate and rhythm Lungs: clear to auscultation Airway: Mallampati scale class II Neurological: alert and oriented Last oral intake: >/= 8 hours ASA classification: II Emergent: no Anesthetic plan: proceed Anesthesia type and monitoring: general LMA and standard monitoring Informed Consent: The patient's anesthetic plan and its attendant risks and benefits were discussed with the patient/family/POA. Questions were solicited and answers provided to the satisfaction of the patient/family/POA.
[2021-02-19] MEDS: LACTATED RINGERS 1,000 ML 30 ML IV CONT ×2 (10:59→13:28)
--- NOTE | 2021-02-19 12:31 | WPDHPUPDATE1 ---
History and Physical Update Update Date/Time: 02/19/21 12:31 History and Physical has been reviewed, including an updated exam of the patient. There are NO changes in the patient's condition. Risks, benefits, and alternatives have been discussed and questions answered. Patient agrees to proceed with procedure.
[2021-02-19] MEDS: ceFAZolin 2 GM/D5W 50 ML 2 GM/50 ML BAG IVPB (12:39)
[2021-02-19] MEDS: LIDOCAINE HCL 2% GEL UROJET 10 ML PKG MUCOUS MEM (12:56)
--- NOTE | 2021-02-19 13:22 | P.OP_ITS ---
Procedure Note - Detailed Date of Procedure 02/19/21 Pre-op Diagnosis Right ureteral stone Post-op Diagnosis same Procedure Performed Cystoscopy, right ureteroscopy with stone extraction, right ureteral stent placement 4.8 Salvadorean contour Surgeon Jac Cherry MD Anesthesia general Findings multiple stone fragments which had migrated to the distal ureter. Description of Procedure Patient is taken to the operative suite and correctly identified. Once anesthesia was obtained was placed in dorsal lithotomy position and prepped and draped usual sterile fashion. Twenty-two Salvadorean scope inserted the bladder. The right orifice was cannulated with a guidewire. Semi rigid ureteral scope was inserted into the orifice after was dilated with an 8/10 dilator. Multiple stone fragments were visualized in the distal ureter. These were grasped and removed. We then placed a ureteral access sheath and placed a mini flexible ureteral scope up into the proximal ureter. There were no other stone fragments noted. The kidney was inspected without any significant findings at this time. 4.8 Salvadorean contour stent was then placed with the proximal end coiled in the renal pelvis and the distal in the bladder. Bladder was drained. 2% viscous lidocaine was inserted urethra patient is taken recovery stable condition. He will follow up in approximately a week's time for stent removal. Call for that appointment. Drains Yes Packing No Pathology yes Complications No immediate complications Condition stable Disposition PACU
--- NOTE | 2021-02-19 15:04 | SUR.PHASEII ---
[address] morrison office to clarify antibiotic usage, pt to taken antibiotic prescribed from office.
== END 2021-02-19 15:00 | disposition home or self-care (01) ==
PROVIDERS: PCP Internal Medicine; Visit Provider Urology
PROC: (CPT 52352; principal; 2021-02-19 12:30)
DX: N20.1 Calculus of ureter (principal); E66.9 Obesity, unspecified; Z68.29 Body mass index [BMI] 29.0-29.9, adult
CPT/HCPCS: 52332; 82365; 88300; A9270; C1769; C1894; C2617; J0690; J1100; J2250; J2405; J2704; J7120

== ENCOUNTER 2021-04-06 13:51 | Outpatient (CLI) | payer BC, SELFPAY ==
--- NOTE | ~2021-04-06 | US_ITS ---
EXAMINATION: US retroperitoneal comp DATE: 04/06/2021 14:17 INDICATION: Right ureteral stone. TECHNIQUE: Multiple ultrasound grayscale images of the kidneys were obtained. COMPARISON: CT abdomen and pelvis 02/16/2021 FINDINGS: The right kidney measures 12.0 x 4.9 x 5.8 cm. The left kidney measures 11.8 x 5.8 x 6.8 cm. The kidn eys demonstrate normal parenchymal echogenicity. There is no hydronephrosis. The bladder is decompres sed. IMPRESSION: 1. Normal kidneys. No hydronephrosis. Reviewed, dictated and finalized at location A.
== END 2021-04-06 13:52 | disposition home or self-care (01) ==
LOC: CHSIMG 13:52
PROVIDERS: PCP Internal Medicine; Visit Provider Urology
DX: N20.1 Calculus of ureter (principal)
CPT/HCPCS: 76770

== ENCOUNTER 2021-08-21 15:56 | Outpatient (CLI) | payer BC, SELFPAY ==
[2021-08-21 17:46] LABS: SARS-CoV-2 Ag Negative (Negative)
== END 2021-08-21 15:57 | disposition home or self-care (01) ==
PROVIDERS: PCP Internal Medicine; Visit Provider Internal Medicine
DX: Z20.822 Contact with and (suspected) exposure to COVID-19 (principal)
CPT/HCPCS: 87426; C9803

== ENCOUNTER 2021-10-02 15:48 | Outpatient (CLI) | payer BC, SELFPAY ==
[2021-10-02 17:40] LABS: SARS-CoV-2 RNA PCR Negative (Negative)
== END 2021-10-02 15:49 | disposition home or self-care (01) ==
LOC: CHSLAB 15:50
PROVIDERS: PCP Internal Medicine; Visit Provider Internal Medicine
DX: J06.9 Acute upper respiratory infection, unspecified (principal); J32.9 Chronic sinusitis, unspecified; Z20.822 Contact with and (suspected) exposure to COVID-19
CPT/HCPCS: C9803; U0003; U0005

== ENCOUNTER 2023-07-16 10:07 | Outpatient (CLI) | payer OTHER, SELFPAY ==
[2023-07-16 10:40] LABS: Appearance Urine Clear (Clear); Basophils Absolute Auto 0.07 K/mm3 (0.00-0.10); Bilirubin Urine Negative (Negative); Blood Urine 1+ (Negative); Color Urine Light Yellow (Yellow); Eosinophils Absolute Auto 0.17 K/mm3 (0.02-0.50); Eosinophils Percent Auto 2.4 % (1.0-6.0); Glucose Urine UA Negative (Negative); Hematocrit 45.7 % (40.0-54.0); Hemoglobin 15.9 g/dL (14.0-18.0); Immature Granulocyte Absolute 0.01 K/mm3 (0.00-0.00); Immature Granulocyte Percent A 0.1 % (0.0-0.0); Ketones Urine Negative (Negative); Leukocyte Esterase Ur Negative LEU/UL (Negative); Lymphocytes Absolute Auto 1.53 K/mm3 (1.10-4.50); Lymphocytes Percent Auto 21.5 % (18.0-42.0); Mean Corpuscular HGB Conc 34.8 g/dL (32.0-36.0); Mean Corpuscular Hemoglobin 30.6 pg (27.0-31.0); Mean Corpuscular Volume 88.1 fL (78.0-102.0); Mean Platelet Volume 10.7 fl (8.7-11.0); Monocytes Absolute Auto 0.53 K/mm3 (0.10-0.90); Monocytes Percent Auto 7.5 % (2.0-11.0); Neutrophils Absolute Auto 4.8 K/mm3 (1.7-7.2); Neutrophils Percent Auto 67.5 % (50.0-70.0); Nitrate Urine Negative (Negative); Platelet Count Result 284 K/mm3 (150-420); Protein Urine Negative (Negative); Red Blood Count 5.19 M/mm3 (4.70-6.10); Red Cell Distribution Width 11.4 % (11.6-14.4); Urobilinogen Urine 0.2 mg/dL (0.2-1.0); White Blood Count 7.1 K/mm3 (4.8-10.8)
[2023-07-16 11:00] LABS: Alanine Aminotransferase 57 U/L (16-63); Albumin Level 3.7 g/dL (3.4-5.0); Alkaline Phosphatase 79 U/L (46-116); Anion Gap 5 mmol/L (8-16); Aspartate Amino Transferase 26 U/L (15-37); Bilirubin,Total 0.4 mg/dL (0.00-1.00); Blood Urea Nitrogen 9 mg/dL (7-18); Calcium 8.9 mg/dL (8.5-10.1); Carbon Dioxide 29 mmol/L (21-32); Chloride 106 mmol/L (98-108); Cholesterol 257 mg/dL (0-200); Estimated Glomerular Filt Rate > 60; Free T4 Free Thyroxine 0.83 ng/dL (0.76-1.46); Glucose 95 mg/dL (70-99); HDL Direct 36 mg/dL (40-60); LDL Cholesterol Calculated 188 mg/dL (<130); Osmolality Calculated 288 mOsm/kg (285-295); Potassium 4.4 mmol/L (3.5-5.1); Sodium 140 mmol/L (136-145); Thyroid Stimulating Hormone 2.33 uIU/mL (0.36-3.74); Total Protein 7.1 g/dL (6.4-8.2); Triglycerides 163 mg/dL (0-150)
[2023-07-16 11:08] LABS: Add Urine Microscopic? YES; Bacteria Urine Trace /hpf; Squamous Epithelial Cell Urine Rare /hpf (Few); WBC Urine None seen /hpf (0-3)
== END 2023-07-16 10:08 | disposition home or self-care (01) ==
PROVIDERS: PCP Nurse Practitioner Family; Visit Provider Nurse Practitioner Family
DX: Z00.00 Encounter for general adult medical examination without abnormal findings (principal)
CPT/HCPCS: 36415; 80053; 80061; 81001; 84439; 84443; 85025

== ENCOUNTER 2025-02-26 14:50 | Outpatient (CLI) | payer OTHER, SELFPAY ==
--- NOTE | 2025-02-26 | CY_PTH ---
PATIENT: Jv Crespo LOC: [facility] U#:[id number] AGE/SX: 44/M ROOM: RE02/26/[address]: Yasmin Melchor, ETHEL : 1980 BED: DIS: 02/26/2025 SPEC #: [id number] RECD: 02/26/25 15:03 STATUS: RUBÉN REQ #: [id number] PÉREZ: 02/26/25 00:[address]: Jill,Yasmin Arroyo DEPT: [facility] Cytology RECD BY: Allison Aceves MLT, (ASCP) ENTERED: 02/27/25 10:45 SP TYPE: Cytology OTHR DR: Regan Sanford MD Tissues: A - Thin Prep Non-Gyne Procedures: Thin Prep Non-general internal medicine doctor
--- OUTSIDE RECORDS SUMMARY | 2025-02-26 14:55 | XMS_ITS | Patient Health Record ---
Author Organization [facility] Address [address] [place], [place] [id number] Care Team Providers Care Export Administrator Name Role Phone PavelCLARA brooks Unavailable [phone] Regan Sanford Unavailable Unavailable Reason For Referral No Information Plan Of Treatment No Information Insurance Providers Payer Name Payer Address Payer Phone Subscriber Number Group Number Insured Name Patient Relationship to Insured Coverage Start Date Coverage End Date [facility] ([facility]) ATTN CLAIMS [address] [place] [address] [id number] PREM CASIANO Self - patient is the insured
--- OUTSIDE RECORDS SUMMARY | 2025-02-26 14:55 | XMS_ITS | Continuity of Care Document ---
Author Organization [facility] Address [address] [place] [address] Phone Care Team Providers Care Director Of Music Name Role Phone Karma Geronimo Unavailable Unavailable Advance Directives Directive Yes / No Effective Date File Name No Information Encounters Encounter Description Practice Location Reason(s) For Visit Diagnoses Date Provider Providers Copied on Encounter [facility], [address], [place], [place], [id number], [place] tel:[phone] [facility] No Information [address] G[address] Parada. [address], [place], [address], [place]. tel:[phone] Referring Provider: Linwood Ramsay MD, [address], [place], [address]. tel:[phone] Family History Family Member Type Diagnosis Age At Onset No Information Payers Payer name Insurance type Covered libertarian ID Authoriza tion(s) No Information Social History Type Description Quantity Date Captured Comments Sex Male Smoking Status No Information Chief Complaint And Reason For Visit No Information Reason For Referral Reason For Referral No Information History Of Present Illness Encounter Date Complaint History Of Prese nt Illness No Information Functional Status Date Functional Assessmen t No Information Instructions Date Instruction Additional Infor mation No Information Assessments Type Assessment Date No Information Patient Care Teams Name Effective Dates (start - stop) Status Members No Information
[2025-02-26 15:07] LABS: Add Urine Microscopic? YES; Appearance Urine Clear (Clear); Glucose Urine UA Negative (Negative); Hematocrit 45.6 % (40.0-54.0); Hemoglobin 16.2 g/dL (14.0-18.0); Immature Granulocyte Percent A 0.2 % (0.0-0.0); Leukocyte Esterase Ur Negative (Negative); Lymphocytes Absolute Auto 1.85 K/mm3 (1.10-4.50); Mean Corpuscular HGB Conc 35.5 g/dL (32-36); Mean Corpuscular Hemoglobin 31.2 pg (27.0-31.0); Mean Corpuscular Volume 87.9 fL (78.0-102.0); Nitrate Urine Negative (Negative); Nucleated Red Blood Cells Absolute Auto 0.00 K/mm3 (0.00-0.00); Nucleated Red Blood Cells Perc 0.0 % (0-0.0); Platelet Count Result 314 K/mm3 (150-420); Red Blood Count 5.19 M/mm3 (4.70-6.10); Specific Grav Ur >= 1.030 (1.010-1.020); White Blood Count 6.5 K/mm3 (4.8-10.8)
[2025-02-26 16:37] LABS: Alanine Aminotransferase 56 U/L (6-50); Albumin Level 4.3 g/dL (3.5-5.1); Alkaline Phosphatase 65 U/L (38-126); Anion Gap 7 mmol/L (4-12); Aspartate Amino Transferase 36 U/L (17-59); Bilirubin,Total 0.5 mg/dL (0.2-1.3); Blood Urea Nitrogen 9 mg/dL (9-20); Calcium 9.1 mg/dL (8.4-10.2); Carbon Dioxide 24 mmol/L (22-30); Chloride 109 mmol/L (98-107); Cholesterol 249 mg/dL (0-200); Estimated Glomerular Filt Rate > 60; Glucose 81 mg/dL (65-110); HDL Direct 31 mg/dL; Osmolality Calculated 287 mOsm/kg (285-295); Potassium 4.5 mmol/L (3.4-5.0); Sodium 140 mmol/L (137-145); Total Protein 7.3 g/dL (6.3-8.2); Triglycerides 296 mg/dL (<150)
[2025-02-26 16:54] LABS: Free T4 Free Thyroxine 0.96 ng/dL (0.78-2.19)
[2025-02-26 17:08] LABS: Thyroid Stimulating Hormone 2.870 uIU/mL (0.465-4.680)
== END 2025-02-26 14:51 | disposition home or self-care (01) ==
PROVIDERS: PCP Internal Medicine; Visit Provider Nurse Practitioner Family
DX: E78.5 Hyperlipidemia, unspecified (principal); K21.9 Gastro-esophageal reflux disease without esophagitis
CPT/HCPCS: 36415; 80053; 80061; 81001; 84439; 84443; 85025; 87086; 88112

== ENCOUNTER 2025-03-06 12:21 | Outpatient (CLI) | payer OTHER, SELFPAY ==
--- OUTSIDE RECORDS SUMMARY | 2025-03-06 12:25 | XMS_ITS | Continuity of Care Document ---
Author Organization [facility] Address [address] [place] [address] Phone Care Team Providers Care Saddle Stitching Machine Operator Name Role Phone Karma Geronimo Unavailable Unavailable Advance Directives Directive Yes / No Effective Date File Name No Information Encounters Encounter Description Practice Location Reason(s) For Visit Diagnoses Date Provider Providers Copied on Encounter [facility], [address], [place], [place], [address], [place] tel:[phone] [facility] No Information [address] Parada. [address], [place], [address], [place]. tel:[phone] Referring Provider: Linwood Ramsay MD, [address], [place], [address]. tel:[phone] Family History Family Member Type Diagnosis Age At Onset No Information Payers Payer name Insurance type Covered green party ID Authoriza tion(s) No Information Social History [...]
--- OUTSIDE RECORDS SUMMARY | 2025-03-06 12:25 | XMS_ITS | Patient Health Record ---
Author Organization [facility] Address [address] [place], [place] [id number] Care Team Providers Care Machine Filler Name Role Phone PavelCLARA brooks Unavailable [phone] Regan Sanford Unavailable Unavailable Reason For Referral No Information Plan Of Treatment No Information Insurance Providers Payer Name Payer Address Payer Phone Subscriber Number Group Number Insured Name Patient Relationship to Insured Coverage Start Date Coverage End Date [facility] ([facility]) ATTN CLAIMS [address] [place] [address] [id number] PREM CASIANO Self - patient is the insured
[2025-03-06 14:04] LABS: Prostate Specific Antigen 0.9 ng/mL (< OR = 4.0)
== END 2025-03-06 12:22 | disposition home or self-care (01) ==
LOC: CHSLAB 12:24
PROVIDERS: PCP Internal Medicine; Visit Provider Nurse Practitioner Family
DX: R31.9 Hematuria, unspecified (principal)
CPT/HCPCS: 36415; 84153